=== PATIENT | male | born 1980 | race Caucasian/White ===

== ENCOUNTER 2023-12-09 11:53 | Outpatient (OUT) | payer OTHER, SELFPAY ==
[2023-12-09 12:38] LABS: Estimated Average Glucose 298 mg/dL
[2023-12-09 13:32] LABS: Alanine Aminotransferase 18 U/L (16-63); Albumin Level 3.7 g/dL (3.4-5.0); Alkaline Phosphatase 88 U/L (46-116); Anion Gap 13.5; Aspartate Amino Transferase 10 U/L (15-37); BUN Creatinine Ratio 23.3; Bilirubin Total 0.6 mg/dL (0.2-1.0); Calcium 8.8 mg/dL (8.5-10.1); Carbon Dioxide 31.1 mmol/L (21.0-32.0); Chloride 95 mmol/L (98-107); Chol HDL Ratio 3.6; Cholesterol 173 mg/dL (<=200); Estimated GFR (African America >60 (>=60 mL/min/1.73m^2); Estimated GFR (Non-African Ame >60 (>=60 mL/min/1.73m^2); Globulin 3.6 g/dL; Glucose 308 mg/dL (74-106); HDL Cholesterol 48 mg/dL (40-60); LDL Cholesterol Calculated 111.2 mg/dL; Potassium 3.6 mmol/L (3.5-5.1); Sodium 136 mmol/L (136-145); Total Protein 7.3 g/dL (6.4-8.2); Triglycerides 69 mg/dL (<=150); VLDL CHOLESTEROL 13.8 mg/dL
[2023-12-10 04:07] LABS: Testosterone 271 ng/dL (264-916)
== END 2023-12-09 11:54 | disposition home or self-care (01) ==
LOC: LAB 11:58
PROVIDERS: PCP Family Medicine; Visit Provider Family Medicine
DX: Z00.00 Encounter for general adult medical examination without abnormal findings (principal); R73.09 Other abnormal glucose; I10 Essential (primary) hypertension; R53.83 Other fatigue
CPT/HCPCS: 36415; 80053; 80061; 82043; 83036; 84403

== ENCOUNTER 2023-12-30 16:19 | Outpatient (OUT) | payer OTHER, SELFPAY ==
--- NOTE | 2023-12-30 | CT_ITS ---
The [address] [address] Patient Name: JOEL HYATT MRN: [id number] date: 1980 Sex: M Assigned Patient Location: CT Current Patient Location: Accession/Order Number: [id number] Exam Date: 12/30/2023 16:25 Report Date: 12/31/2023 06:43 At the request of: NICHO REAL Procedure: CT sinus wo con EXAMINATION: CT sinus wo con HISTORY: R09.81 Sinus fullness COMPARISON: No relevant comparison available. TECHNIQUE: Axial and Coronal CT images were created without and/or with IV contrast as indicated by examination type. Dose reduction techniques were achieved by using automated exposure control and/or adjustment of mA and/or kV according to patient size and/or use of iterative reconstruction technique. FINDINGS: MAXILLARY SINUSES: Trace amount of mucosal thickening within base of maxillary sinuses bilaterally. Tiny mucocele/retention cysts within left sinus. Patent ostiomeatal complex. ETHMOID SINUSES: No significant mucosal thickening or fluid. Fovea ethmoidali and lamina papyracea are symmetric and intact. SPHENOID SINUSES: No significant mucosal thickening or fluid. Sphenoethmoidal recesses are patent. No bony dehiscence. FRONTAL SINUSES: No significant mucosal thickening or fluid. Frontal recesses are patent. NASAL FOSSA: deviation of the nasal septum. No padmini bullosa or paradoxical turbinates are identified. OTHER: Widely patent nasal passageway. CT/CT sinus wo con IMPRESSION: 1. Minimal chronic sinusitis. 2. No acute or suspicious findings to account for patient's symptoms. Electronically authenticated by: DION ÁLVAREZ Date: 12/31/2023 06:43
--- OUTSIDE RECORDS SUMMARY | 2023-12-30 16:22 | XMS_ITS | CCD ---
Author Organization [facility] Care Team Providers Care Kettle Operator Name Role Phone MEHUL COOK Admitting Unavailable MEHUL COOK Attending Unavailable LATOYA SALDANA Primary Care Unavailable MEHUL COOK Consulting Unavailable Leslie Rivero Unavailable Latoya Saldana Unavailable MD Latoya Saldana Primary Care Provider [phone] LAVELL Lieberman Attending Provider [phone] Latoya Saldana Primary Care Unavailable Daya Lieberman Attending Unavailable Daya Lieberman Admitting Unavailable Unavailable Primary Care Provider Unavailclair e Medications Current Medications Medication Drug Class(es) Dates Sig (Normalized) Sig (Original) amoxicillin 875 mg / clavulanate 125 mg oral tablet (2 sources) Penicillin-class Antibacterial Start: 12-04-2023 take 1 tablet by mouth twice daily Amoxicillin-Pot Clavulanate Active 1 TAB PO Twice daily 28 11December 04, 2023 12:00am dextromethorphan hydrobromide 15 mg / guaiFENesin 400 mg / pseudoephedrine hydrochloride 60 mg oral tablet (2 sources) alpha-Adrenergic Agonist, Uncompetitive G-ugkuzd-Y-aspartat e Receptor Antagonist, Sigma-1 Agonist Start: 12-04-2023 take 4 tablets by mouth every twenty-four hours Pseudoephedrine- Dm-Guaifenesin (Capmist Dm) 60-15-400 mg tablet Active 1 TAB PO Every 4 hours 28 06December 04, 2023 12:00am do not exceed 4 doses per 24 hrs finasteride 1 mg oral tablet (3 sources) 5-alpha Reductase Inhibitor Start: 12-08-2023 take 1 tablet by mouth once daily Finasteride Active 1 TAB PO Daily December 08, 2023 12:00am FreeTextSig: TAKE 1 TABLET BY MOUTH EVERY DAY Oral; Note: Source Status: Taking; Refills: 7; Qty: 30 Each; Provider: JANELL CARTER take 1 tablet by mouth once khurram y Finasteride 1 MG TAKE 1 TABLET BY MOUTH EVERY DAY Oral for 30 Days Active methylPREDNISolone 4 mg oral tablet (2 sources) Corticosteroid Start: 12-04-2023 take 1 tablet by mouth once Methylprednisolone (Medrol (Fei)) 4 mg tablets,dose pack Active 0 PO per package directions December 04, 2023 12:00am PO PER PKG DIR for 6 days naproxen 500 mg oral tablet (3 sources) Nonsteroidal Anti-inflammatory Drug Start: 12-08-2023 take 1 tablet by mouth every twelve hours at mealtime as needed Naproxen (Naprosyn) 500 mg tablet Active 500 MG PO Every 12 hours December 08, 2023 12:00am FreeTextSi tablet with food or milk as needed Orally every 12 hrs; Note: Source Status: Not-Taking\PRN; Refills: 0; Qty: 60 Tablet; Provider: Josefa Jones Start: 02-26-2022 take 1 tablet by renzo th every twelve hours at mealtime as needed Naprosyn 500 MG 1 tablet with food or milk as needed Orally every 12 hrs for 30 day(s) Feb, Not-Taking Problems Active Problems Problem Classification Problem Date Documented Da te Episodic/Chronic Acute bronchitis (1 source) Acute bronchitis, unspecified; Translations: [Acute bronchitis] 12-04-2023 Episodic Administrative/social admission (1 source) Patient encounter status; Translations: [Other specified counseling] 12-29-2023 Episodic Diabetes mellitus without complication (2 sources) Increased glucose level; Translations: [Other abnormal glucose] 12-08-2023 Episodic Essential hypertension (2 sources) Malignant essential hypertension; Translations: [Essential (primary) hypertension] 12-08-2023 Chronic Immunizations and screening for infectious disease (3 sources) Contact with and (suspected) exposure to other viral communicable diseases; Translations: [CONTCT EXPS OTH VIRL COMMUNICABL DZ] Onset: 11-16-2019 Episodic Malaise and fatigue (2 sources) Fatigue; Translations: [Other fatigue] 12-08-2023 Episodic Other non-traumatic joint disorders (2 sources) Rotator cuff arthropathy of left shoulder; Translations: [Other specific arthropathies, not elsewhere classified, left shoulder] Chronic Other non-traumatic joint disorders (2 sources) Other specific arthropathies, not elsewhere classified, left shoulder Chronic Other skin disorders (2 sources) Alopecia; Translations: [Nonscarring hair loss, unspecified] Episodic Other upper respiratory infections (1 source) Acute sinusitis, unspecified; Translations: [Acute sinusitis, unspecified] 12-04-2023 Episodic Unclassified (1 source) COVID-19; Translations: [COVID-19] Onset: 11-22-2019 Unclassified (1 source) Cough, unspecified; Translations: [Cough, unspecified] Onset: 12-04-2023 Past or Other Problems Problem Classification Problem Date Documented Da te Episodic/Chronic Viral infection (2 sources) COVID-19; Translations: [Asymptomatic COVID-19 virus infection] Results Test Name Value Interpretation Reference Range Facil ity Ambulatory referral to Lala Sibley 12-29-2023 [facility] XR chest 2V*on 12-04-2023 XR chest 2V* [facility] [address] [place] [address] XRay Report Signed Patient: Cristobal Bennett MR#: [id number] 10 : 1980 Acct:[id number] Age/Sex: 43 / M ADM Date: 12/04/23 Loc: XDUCLY Room: Type: [facility] Attending Dr: Daya Lieberman BUSINESS TECHNOLOGY PROFESSOR Copies to: Daya Lieberman APRN Ordering Provider: Daya Liebreman APRN Date of Service: 12/04/23 XR/XR chest 2V*: R05.9 - Cough, unspecified Plain film chest 2 view HISTORY: Productive cough for one month COMPARISON: None FINDINGS: SUPPORT DEVICES: None POSTSURGICAL CHANGES: None HEART: Within normal limits PULMONARY ZACHARY: Within normal limits MEDIASTINUM: Unremarkable LUNGS AND PLEURA: No acute lung process, pleural effusion or pneumothorax identified. BONY STRUCTURES: Intact ADDITIONAL FINDINGS None XR/XR chest 2V* IMPRESSION: No acute process. Impression dictated by: Billy Arriaga M.D.12/04/2023 10:42 AM Dictation Location: [place] [address] Transcribed By: [facility] 12/04/23 1042 Dictated By: Billy Arriaga DO 12/04/23 1042 Signed By: 12/04/23 104 Normal [facility] COVID-19 PCRon 11-19-2019 SARS-CoV-2, SHIMA Detected Abnormal Not Detected [facility] Comment on above: Result Comment: This nucleic acid amplification test was developed and its performance characteristics determined by [employer]. Nucleic acid amplification tests include PCR and TMA. This test has not been FDA cleared or approved. This test has been authorized by FDA under an Emergency Use Authorization (EUA). This test is only authorized for the duration of time the declaration that circumstances exist justifying the authorization of the emergency use of in vitro diagnostic tests for detection of SARS-CoV-2 virus and/or diagnosis of COVID-19 infection under section 564(b)(1) of the Act, 21 U.S.C. 360bbb-3(b) (1), unless the authorization is terminated or revoked sooner. When diagnostic testing is negative, the possibility of a false negative result should be considered in the context of a patient's recent exposures and the presence of clinical signs and symptoms consistent with COVID-19. An individual without symptoms of COVID-19 and who is not shedding SARS-CoV-2 virus would expect to have a negative (not detected) result in this assay. Performed By: #### C VDPCR #### [facility] [address] [place] [address] Rudi Mahan Vital Signs Date Time Vital Sign Value Performing Clinician Facility 12-29-2023 16:04-0500 Body height 175.3 cm Samanta JOHNSON Work Phone: [facility] 12-29-2023 16:04-0500 Body mass index (BMI) [Ratio] 32.49 kg/m2 Samanta JOHNSON Work Phone: [facility] 12-29-2023 16:04-0500 Body weight 99.79 kg Samanta JOHNSON Work Phone: [facility] 12-08-2023 13:47-0400 Body height 175.26 cm MD Latoya Saldana Work Phone: [facility] 12-08-2023 13:47-0400 Body mass index (BMI) [Ratio] 30.5 kg/m2 MD Latoya Saldana Work Phone: [facility] 12-08-2023 13:47-0400 Body weight 93.89 kg MD Latoya Saldana Work Phone: [facility] 12-08-2023 13:47-0400 Diastolic blood pressure 109 mm[Hg] MD Latoya Saldana Work Phone: [facility] 12-08-2023 13:47-0400 Heart rate 88 /min MD Latoya Saldana Work Phone: [facility] 12-08-2023 13:47-0400 Systolic blood pressure 148 mm[Hg] MD Latoya Saldana Work Phone: [facility] 12-04-2023 09:59-0400 Body height 175.26 cm MD Latoya Saldana Work Phone: [facility] 12-04-2023 09:59-0400 Body mass index (BMI) [Ratio] 31.6 kg/m2 MD Latoya Saldana Work Phone: [facility] 12-04-2023 09:59-0400 Body temperature 98 [degF] MD Latoya Saldana Work Phone: [facility] 12-04-2023 09:59-0400 Body weight 97.29 kg MD Latoya Saldana Work Phone: [facility] 12-04-2023 09:59-0400 Diastolic blood pressure 101 mm[Hg] MD Latoya Saldana Work Phone: [facility] 12-04-2023 09:59-0400 Heart rate 104 /min MD Latoya Saldana Work Phone: [facility] 12-04-2023 09:59-0400 Respiratory rate 18 /min MD Latoya Saldana Work Phone: [facility] 12-04-2023 09:59-0400 SaO2% (BldA) [Mass fraction] 96 % MD Latoya Saldana Work Phone: [facility] 12-04-2023 09:59-0400 Systolic blood pressure 146 mm[Hg] MD Latoya Saldana Work Phone: [facility] 02-28-2022 12:30-0500 Body height 173.99 cm Latoya Saldana Other [employer] Other 02-28-2022 12:30-0500 Body mass index (BMI) [Ratio] 33.56 kg/m2 Latoya Saldana Other [facility] [employer] Other 02-28-2022 12:30-0500 Body weight 101.61 kg Latoya Saldana Other [email or web address] Other 02-28-2022 12:30-0500 Diastolic blood pressure 86 mm[Hg] Latoya Saldana Other [email or web address] Other 02-28-2022 12:30-0500 SaO2% (BldA) [Mass fraction] 97 % Latoya Saldana Other [email or web address] Other 02-28-2022 12:30-0500 Systolic blood pressure 138 mm[Hg] Latoya Saldana Other [email or web address] Other 02-26-2022 10:30-0500 Body height 173.99 cm Leslie Rivero Other [email or web address] Other 02-26-2022 10:30-0500 Body mass index (BMI) [Ratio] 32.96 kg/m2 Leslie Rivero Other [email or web address] Other 02-26-2022 10:30-0500 Body temperature 98 [degF] Leslie Rivero Other [email or web address] Other 02-26-2022 10:30-0500 Body weight 99.79 kg Leslie Rivero Other [email or web address] Other 02-26-2022 10:30-0500 Diastolic blood pressure 88 mm[Hg] Leslie Rivero Other [email or web address] Other 02-26-2022 10:30-0500 Respiratory rate 18 /min Leslie Rivero Other [email or web address] Other 02-26-2022 10:30-0500 SaO2% (BldA) [Mass fraction] 99 % Leslie Rivero Other [email or web address] Other 02-26-2022 10:30-0500 Systolic blood pressure 144 mm[Hg] Leslie Rivero Other [email or web address] Other Encounters Encounter Date Encounter Type Care Provider Facility Start: 12-29-2023 End: 12-29-2023 Diabetic care education Samanta JOHNSON Work Phone: [facility] Comment on above: Diabetes education, encounter for Start: 12-08-2023 Patient encounter status MD Latoya Saldana Work Phone: [facility] Start: 12-08-2023 End: 12-08-2023 ambulatory MD Latoya Saldana Work Phone: [facility] Work Phone: Start: 12-08-2023 End: 12-08-2023 Encounter for general adult medical examination without abnormal findings MD Latoya Saldana Work Phone: [facility] Start: 12-08-2023 End: 12-08-2023 Patient encounter procedure MD Latoya Saldana Work Phone: [facility] Work Phone: Start: 12-04-2023 End: 12-04-2023 ambulatory MD Latoya Saldana Work Phone: [facility] Work Phone: Start: 12-04-2023 End: 12-04-2023 Patient encounter procedure MD Latoya Saldana Work Phone: [facility] Work Phone: Start: 02-28-2022 End: 02-28-2022 ambulatory Latoya Saldana Other [employer] [facility] [employer] Other Start: 02-28-2022 Office outpatient vi sit 15 minutes Latoya Saldana [facility] Start: 02-26-2022 End: 02-26-2022 ambulatory Leslie Rivero Other [email or web address] Other Start: 02-26-2022 Office outpatient ne w 20 minutes Leslieamber Rivero [facility] Start: 11-16-2019 End: 11-17-2019 Patient encounter procedure MEHUL COOK Facility: Procedures Date Procedure Procedure Detail Performing Clinician Start: 12-29-2023 AMB REFERRAL TO DIAB ETIC EDUCATION Latoya Saldana MD Work Phone: Start: 12-04-2023 Plain chest X-ray MD Alyson Saldana Work Phone: Plan of Treatment Date Care Activity Detail Author Start: 10-11-2023 COVID-19 Vaccine ( season) COVID-19 Vaccine ( season) [facility] Start: 10-11-2023 Influenza vaccination Influenza Vacc ine [facility] Start: 2000 DTaP,Tdap and Td Vac cines (1 - Tdap) DTaP,Tdap and Td Vaccines (1 - Tdap) [facility] Start: 08-16-1999 Adult BMI Screening Adult BMI Screen ing [facility] Start: 1993 Depression Screening Depression Scre ening [facility] Start: 1993 Tobacco Screening Tobacco Screening [facility] Comprehensive metabo lic 2000 panel - Serum or Plasma [facility] Microalbumin [Mass/volume] in Urine [facility] Payers Date Payer Category Payer Self-pay 2023 Unknown [id number] 2022 Managed Care Other (unspecified) [employer] [id number] 1980 Unknown [id number] 1958 Unknown [id number] Unknown [id number] Social History Date Type Detail Facility Unknown if ever smoked [email or web address] Other Start: 12-29-2023 Sex Assigned At [facility] Work Phone: Start: 1980 Sex Assigned At Male F [facility] Tobacco smoking status AZIS Tobacco smoking consumption unknown [facility] Start: 12-29-2023 History of Social function [facility] Work Phone: Within the past 12 months we worried whether our food would run out before we got money to buy more. Never [facility] Work Phone: Start: 1980 Sex assigned at Not on file [facility] Start: 12-16-2023 Sex Male (finding) [facility] History of Present illness Narrative 12-29-2023 ELIZABETH Ramirez - 12/29/2023 2:00 PM EST Note Date & Type Note Facility 12-29-2023 History of Presen t illness Narrative DIABETES SELF-MANAGEMENT THERAPY (DSMT) Date: 12/29/23 Start Time: 2:40 End Time: 4:00 Patient Cristobal Bennett Age () 43 y.o. (1980) Sex male Accompanied by alone Reason for Visit: Chief Complaint Patient presents with MNT - Individual Referring Provider: Dr. Latoya Saldana Assessment: Allergies: Not on File Lab Results: A1c No results found for: HGBA1C No results found for: [id number] Kidney No results found for: ALBCREATRA No results found for: MICROALBUR , MICRAU Lipid Panel No results found for: CHOL No results found for: HDL No results found for: LDLCALC No results found for: TRIG No results found for: CHOLHDL Vitals: Wt Readings from Last 1 Encounters: 12/29/23 99.8 kg (220 lb) Ht Readings from Last 1 Encounters: 12/29/23 175.3 cm (5' 9 ) Psychosocial / Economic Comments: Pt report he is a newly dx Type 2 Diabetic starting on Metformin. Blood glucose per meter is around 170 mg/dl he reports he is feeling better since blood glucose has been decreasing dx at 355 mg/dl . He reports he only consumed one meal per day plus numerous regular pops but now he knows to that he needs to change his eating pattern and monitoring his carbohydrates. He likes to snack on string cheese, chips, and nuts. He states he has a lot of stress at work. Prior Nutrition Counseling: Prior nutrition counseling was not provided. Diagnosis: Food and Nutrition related knowledge deficit lack of exposure to nutrition related information as evidenced by condition associated with a new diagnosis. Intervention: Patient was instructed on: Acute Complications Blood Glucose Monitoring / HbA1c Chronic Complications / Preventative Measures Diabetes Disease Process Healthy Choices: Carbohydrate Counting, Plate Method, and Low Saturated Fats, menu planning, and label reading. Monitoring & Evaluation: Goals To start to consume an 3 meals per day 4-5 hours apart Pack his am breakfast and lunch for work Measure out foods containing Carbohydrates. He is to have 75 grams per meal Follow-Up Plan Patient plans to call R.D. to schedule. Department phone number provided for questions after session. ELIZABETH Ramirez, [facility] Diabetes [facility] Nutrition Education documented in this encounter [facility] Evaluation note 02-28-2022 Note Date & Type Note Facility 02-28-2022 Evaluation note Encounter Date Diagnosis Assessment Notes Feb, Rotator cuff arthropathy of left shoulder (ICD-10 - M12.812) [email or web address] Other Evaluation note 02-26-2022 Note Date & Type Note Facility 02-26-2022 Evaluation note Encounter Date Diagnosis Assessment Notes Feb, Rotator cuff arthropathy of left shoulder (ICD-10 - M12.812) Drink plenty fluids, get plenty of rest. Take the Naprosyn 2 times a day until you see Dr. Saldana. Follow-up with Dr. Saldana at the end of this week or beginning of next week for recheck. Go to the ER for worsening of symptoms such as chest pain, shortness of breath, numbness or tingling of your hand. Feb, Other Shoulder sprain material was printed [email or web address] Other Evaluation note Note Date & Type Note Facility Evaluation note No assessment information availa [facility] Work Phone: Evaluation note Note Date & Type Note Facility Evaluation note Diagnosis Onset Date Acute bacterial sinusitis no neactive Acute bronchitis noneactive Accelerated essential hypertension acute Elevated glucose acute Fatigue acute Wellness examination [facility] Work Phone: Evaluation note Note Date & Type Note Facility Evaluation note Diagnosis Diabetes education, encounter for documented in this encounter [facility] History general Narrative - Reported Note Date & Type Note Facility History general Narrative - Reported Type Medical History Alopecia Medical History Asymptomatic COVID-19 virus infe ction [email or web address] Other Instructions Note Date & Type Note Facility Instructions Not on filedocumented in this en counter [facility] Summary Purpose Family History No Family History Records FoundNo Family History Records Found Advance Directives Advance Directive Response Recorded Date/ Time Advance Directives No December 04, 2023 9:36am Reason for Referral Reason 03/04/22 Kalie damon - care report in chart. No xrays have been done yet. Diagnosis 1 Rotator cuff arthrop athy of left shoulder (M12.812) Referral Organization [facility] alida Referring Provider First Name Latoya Referring Provider Last Name Shana Referring Provider Specialty Family [facility] Referred Organization [facility] Referred Provider GaryJustus Referred Address ,[place], [place],[address] Referred Provider Specialty Orthopedic S urgery Referral Priority Routine Referral Appointment Date 2022-03-04 General Notes Genny Conrad 11:24:42 AM >received today, UC and office note attached, along with insurance card, notes locked and referral faxed P2P Genny Conrad 03/10/2022 10:52:33 AM >faxed first attempt letter Genny Conrad 03/11/2022 03:48:12 PM >received fax with appt date. pt saw ASSOCIATE PROFESSOR OF BIBLICAL STUDIES Hany Negron. Note not locked yet Genny Conrad 03/13/2022 10:35:20 AM >note still not locked Genny Conrad 03/20/2022 12:33:59 PM >faxed first request for consult notes Genny Conrad 03/25/2022 11:42:33 AM >faxed second request for consult notes Genny Conrad 03/26/2022 02:16:17 PM >received notes and sent to Dr. Saldana for review. Closing referral at this time. Chief Complaint and Reason for Visit Chief Complaint Sinus congestion, co ugh, chest congestion R05.9 - Cough, unspecified Chief Complaint Sinus congestion, co ugh, chest congestion R05.9 - Cough, unspecified blood sugar concerns Reason for Visit Acute bacterial sinu sitis Acute bronchitis Accelerated essential hypertension Elevated glucose Fatigue Wellness examination Additional Source Comments (unrecognized sect ion and content) No Status Records FoundNo Status Records Found INFORMATION SOURCE (unrecogn ized section and content) DATE CREATED AUTHOR 11/23/2019 [facility] DATE CREATED AUTHOR AUTHOR'S ORGANIZ ATION 12/12/2023 [facility] REASON FOR VISIT (unrecogniz ed section and content) Reason Comments MNT - Individual Specialty Diagnoses / Procedures Referred By Contkennedy t Referred To Contact Endocrinology, Diabetes & Metabolism Diagnoses Diabetes education, encounter for Latoya Saldana MD [address] [place] [address] Phone: tel: fax: [facility] [address] [place] [address] Phone: tel: fax: Referral ID Status Reason Start Date Expiration Date Visits Requested Visits Authorized [id number] Pending Review Specialty Services Required 12/16/2023 12/15/2024 1 1 Care Teams (unrecognized sec tion and content) Team Status: Active Member Role Status Dates Latoya Saldana MD Primary Care Provider Active Team Status: Inactive Member Role Status Dates Latoya Saldana MD Primary Care Provider Active Start: December 04, 2023 End: December 04, 2023 Daya Lieberman APRN Attending Provider Active Sta rt: December 04, 2023 End: December 04, 2023 Team Status: Active Member Role Status Dates Latoya Saldana MD Primary Care Provider Active Start: December 04, 2023 Daya Lieberman APRN Attending Provider Active Sta rt: December 04, 2023 Team Status: Inactive Member Role Status Dates Latoya Saldana MD Primary Care Provide r, Attending Provider Active Start: December 08, 2023 End: December 08, 2023 Goals (unrecognized section and content) Goals may be documented in a n alternate section FOR RECORDS PERTAINING TO PATIENTS WHO ARE OR HAVE BEEN ENROLLED IN A CHEMICAL DEPENDENCY/SUBSTANCEABUSE PROGRAM, SOME INFORMATION MAY BE OMITTED. This clinical summary was aggregated from multiple sources. Caution should be exercised in using it in the provision of clinical care. This summary normalizes information from multiple sources, and as a consequence, information in this document may materially change the coding, format and clinical context of patient data. In addition, data may be omitted in some cases. CLINICAL DECISIONS SHOULD BE BASED ON THE PRIMARY CLINICAL RECORDS. [facility] [employer] provides no warranty or guarantee of the accuracy or completeness of information in this document.
== END 2023-12-30 16:20 | disposition home or self-care (01) ==
LOC: CT 16:19
PROVIDERS: PCP Family Medicine; Visit Provider Family Medicine
DX: R09.81 Nasal congestion (principal); J32.8 Other chronic sinusitis
CPT/HCPCS: 70486